=== PATIENT | male | born 1945 | race Caucasian/White ===

== ENCOUNTER 2023-05-20 06:49 | Outpatient (RCR) | payer OTHER, SELFPAY | END 2023-05-22 23:59 | disposition home or self-care (01) | LOC: RPT 06:49 | PROVIDERS: ATTENDING PHYSICIAN Orthopaedic Surgery Sports Medicine; FAMILY PHYSICIAN Family Medicine | DX: Z47.89 Encounter for other orthopedic aftercare (principal); S76.111D Strain of right quadriceps muscle, fascia and tendon, subsequent encounter; Z73.6 Limitation of activities due to disability | CPT/HCPCS: 97110; 97112; 97530 ==

== ENCOUNTER 2023-06-26 07:57 | Outpatient (RCR) | payer OTHER, SELFPAY | END 2023-06-26 23:59 | disposition home or self-care (01) | LOC: RPT 07:57 | PROVIDERS: ATTENDING PHYSICIAN Orthopaedic Surgery Sports Medicine; FAMILY PHYSICIAN Family Medicine | DX: S76.111D Strain of right quadriceps muscle, fascia and tendon, subsequent encounter (principal) | CPT/HCPCS: 97110; 97112; 97530 ==

== ENCOUNTER 2023-08-14 09:00 | Outpatient (RCR) | payer OTHER, SELFPAY | END 2023-08-15 07:36 | disposition home or self-care (01) | LOC: RPT 09:00 | PROVIDERS: ATTENDING PHYSICIAN Orthopaedic Surgery Sports Medicine; FAMILY PHYSICIAN Family Medicine | DX: S76.111D Strain of right quadriceps muscle, fascia and tendon, subsequent encounter (principal); Z48.89 Encounter for other specified surgical aftercare; Z73.6 Limitation of activities due to disability | CPT/HCPCS: 97110; 97530 ==

== ENCOUNTER 2023-11-15 12:19 | Day surgery (SDC) | payer OTHER, SELFPAY ==
[2023-10-18 13:08] LABS: % Basophils 0.6 % (0-2); % Eosinophils 0.8 % (0-6); % Immature Granulocytes 0.2 % (0-0.5); % Lymphocytes 26.4 % (20.5-51.1); % Monocytes 7.7 % (1.7-9.3); % Neutrophils 64.3 % (42.2-75.2); Absolute Eosinophils 0.1 10^3/uL (0-0.7); Absolute Lymphocytes 1.7 10^3/uL (1.2-3.4); Absolute Monocytes 0.5 10^3/uL (0.1-0.6); Absolute Neutrophils 4.1 10^3/uL (1.4-6.5); Hematocrit 38.7 % (39.0-52.0); Hemoglobin 12.8 g/dL (13.0-18.0); Mean Corp Hgb Conc. 33.1 g/dL (33.0-37.0); Mean Corpuscular Hgb 30.4 pg (27.0-31.0); Mean Corpuscular Volume 91.9 fL (80.0-94.0); Mean Platelet Volume 10.9 fL (7.4-10.4); Nucleated Red Blood Cells % 0 % (-); Platelet Count 377 10^3/uL (130-400); Red Blood Cell Count 4.21 10^6/uL (4.70-6.10); Red Cell Dist. Width 14.4 % (11.5-14.5); White Blood Cell Count 6.4 10^3/uL (4.8-10.8)
[2023-10-18 13:21] LABS: ALT (SGPT) 56 U/L (0-50); AST (SGOT) 44 U/L (17-59); Albumin 4.3 g/dl (3.5-5.0); Alkaline Phosphatase 90 U/L (38-126); Blood Urea Nitrogen 32 mg/dl (9-20); Calcium 9.6 mg/dl (8.4-10.2); Carbon Dioxide 25 mmol/L (22-30); Chloride 108 mmol/L (98-107); Estimated Creatinine Clearance 65 ml/min; Glucose 72 mg/dl (70-99); Potassium 5.4 mmol/L (3.5-5.1); Sodium 138 mmol/L (135-145); Total Bilirubin 0.4 mg/dl (0.2-1.3); eGFR > 60.00
[2023-10-18 13:25] VITALS: BMI 24.2
[2023-11-15] VITALS (11 sets, daily range): BP systolic 115–154; BP diastolic 66–82; BMI 24.4
[2023-11-15 17:33] LABS: ACT-LR - POC 340 Seconds (116-155)
[2023-11-15 17:51] LABS: ACT-LR - POC 298 Seconds (116-155)
--- NOTE | 2023-11-15 18:18 | ITS.CL.ABL ---
Utility Agent - Ablation
Ablation
Procedure Report:
AFIB ablation:
Mr. Pitts is a very pleasant 78 yr old gentleman with medical history significant for symptomatic paroxysmal atrial fibrillation on Amiodarone, who is here in the EP lab for atrial fibrillation ablation
Date of Procedure:
11/15/2023
Indications:
Symptomatic atrial fibrillation
Pre-Operative Diagnosis:
Paroxysmal Atrial fibrillation
Post-Operative Diagnosis:
Paroxysmal Atrial fibrillation
Procedure Performed:
Atrial fibrillation ablation with wide area circumferential ablation (WACA) approach for pulmonary vein isolation
Performing Physician:
Mike Fatima MD
Assistants:
EP staff
Anesthesia:
See anesthesia records
Detailed Description of the Procedure:
Written informed consent was obtained from the patient after a full explanation of the risks and benefits of the procedure including the risks of sedation and anesthesia.
The patient was brought to the electrophysiology laboratory in stable condition in fasting state. Continuous electrocardiographic and hemodynamic monitoring was initiated.
The initial rhythm was normal sinus rhythm.
The procedure site was meticulously prepared with surgical scrub and allowed to dry with no pooling. Sterile draping was applied to cover the procedure site. The image intensifier was draped with sterile bag and positioned over the patient. After
infusion of local anesthetic, vascular access was obtained under ultrasound guidance and sheaths were placed over guide wire as detailed below.
Sheath and Catheter Placement:
In the right femoral vein, an 8-Mozambican sheath was placed for use during the ablation procedure. A second 9-Fr sheath was placed for use during intracardiac echo procedure.
The sheaths were upgraded as needed during the case. Intracardiac catheters were positioned using direct fluoroscopic guidance.� ICE catheter was placed in RA. The following catheters / sheaths were placed
Sheaths:
��������������� Agilis sheath in right femoral vein upgraded from 8Fr in right femoral vein
��������������� 9Fr in right femoral vein
Catheters:
������������� [employer] Thermacool STSF bidirectional (D/F) - at locations of HRA, RV, LA and LV.
������������� Pentaray catheter � at locations of RA and LA
������������� ICE catheter - at locations of RA, SVC, and RV.
Intracardiac ECHO:
An 8-Mozambican AcuNav intracardiac ECHO (ICE) probe was advanced through the 9-Mozambican sheath in the femoral vein into the right atrium under fluoroscopic and ICE ultrasound image guidance and a baseline ECHO study was performed. The left atrial size
was normal. There was trace tricuspid regurgitation. The aortic valve was grossly normal. There was normal left ventricular size and function. There was no pericardial effusion. The KRISTAL has normal velocities noted on Doppler. All the four veins were
identified and good flow noted.
During the procedure, ICE was used for monitoring of complications, guidance of trans-septal puncture, monitor the catheter position and tracking ablation lesions. No change in the pericardial space noted throughout the procedure.
Trans-septal Puncture:
Heparin was initiated and infused to maintain appropriate ACT.
A J-tipped guidewire was advanced through the 8-Mozambican sheath in the right femoral vein into the superior vena cava under fluoroscopic and ICE guidance. The 8-Mozambican sheath was exchanged for an Agilis sheath which was advanced into the superior vena
cava. A BRK needle was advanced until the tip was slightly behind the tip of the dilator inside the Agilis. The apparatus was withdrawn until it was in contact with the fossa ovalis. The position was adjusted based on fluoroscopy and ultrasound
images from ICE. Under fluoroscopic, hemodynamic and ICE ultrasound guidance, left atrium was cannulated by advancing the needle. Once atrial septum was cannulated, the needle was pulled back and a BMW guide wire was advanced through the needle into
the left atrium. The guide wire was advanced into the left superior pulmonary vein. Both the sheath and the dilator was advanced into the left atrium. The dilator with the needle was withdrawn. Blood was aspirated from the Agilis sheath and arterial
blood confirmed. The sheath was flushed. Saline injection noted into the left atrium on ICE. The pressure waveform was checked ad LA pressure measured. The penta-ray catheter was advanced in the Agilis sheath into the left pulmonary vein.
The 3-D mapping was done and then the penta-ray was switched to ablation catheter and back to penta-ray as needed.
3D Electroanatomic Mapping:
Using the Pentaray catheter advanced through Agilis sheath into the left atrium, an electroanatomic map (EAM) of the left atrium was created using [employer] Carto mapping system. The map was used for localization of catheter position and
tacking of ablation lesions. The EAM of the left atrium showed 4 pulmonary veins with all four electrically connected to the body the LA. It showed scattered scar on the posterior wall of the LA. The LA was mildly dilated in size.
Following the EAM, preparations were made for ablation.
Phrenic nerve stimulation attempt:
The right sided pulmonary veins were identified and the anterior antrum and the deep anterior locations of the PVs were check with high output stimulation that showed no phrenic nerve capture in any of the potential ablation areas. The whole of the
anterior wall was mapped and the deep veins were also tested and once no sign of phrenic capture noted, a design line was created through the areas of tested antral myocardium for ablation lesions.
Ablation:
Pulmonary vein Isolation:
Radiofrequency ablation was performed using an open irrigation, force-sensing 3.5mm radiofrequency ablation catheter (ThermocoViOptix STSF) by completing the circumferential lesions around the left and right pulmonary veins achieving pulmonary vein
isolation.
All the ablation lesions were guided by the [employer] SURPOINT module with the posterior lesions were limited to 45 martel for SURPOINT lesion index goal of 400 and anterior wall lesions were limited to SURPOINT index goal of 450.
The esophagus was noted to be on the left side of the LA near the PV antra based on the locations of the esophageal temperature probe. Ablation was stopped for any temperature increase of 0.1 degree C. Max esophageal temperature was 37.4C� (baseline
36.1)
EP study / Confirmation of the PVI and bidirectional block:
Following achievement of entrance block at the pulmonary veins, pacing from the pentaray catheter in each of the four veins at 10 milliamps for 2 milliseconds showed entrance and exit block. All PVI were rechecked at the end of the case and remained
isolated with dissociated and local capture with pacing. Entrance and exit block were demonstrated in all veins.
The LA was mapped with Carto EAM in sinus rhythm confirming the line of block at the ablation lesions lines.
Sinus Node Function: The sinus node functions are within acceptable normal range.
The AV nile functions are deemed within normal range.
The mitral annulus was mapped and no sign of accessory pathway was noted.
Arrhythmia Induction:
No sustained arrhythmia was induced at the end of the study.�
Procedure End
ICE study was done again that showed no epicardial accumulation. No complications noted.
Following the completion of the EP study, catheters were removed. Protamine 50 mg was given at the end of the procedure and ACT was checked repeatedly. The sheaths were removed and hemostasis achieved with �figure of 8 suture� and manual compression
after acceptable ACT is achieved.
Left atrial Pressure:
Pre-Procedure: Mean LA pressure was 8mmHg
Post-Procedure: Mean LA pressure was 9mmHg
Post-Procedure: Mean RA pressure was 6mmHg
Estimated Blood loss:
<10 cc
Specimens Removed:
None.
Implants / Devices:
None
Urine output:
None
Packs / Drains/ Tubes:
None
Instrument / Sponge Count Correct:
Yes
Complications of the Procedure:
None
Condition of Patient at Time of Transfer:
Hemodynamically stable with no neurological or vascular compromise.
Summary:
Successful atrial fibrillation ablation with circumferential bidirectional line of block at pulmonary vein antra (Pulmonary vein isolation)
--- NOTE | 2023-11-15 20:00 | PTCARENOTE ---
Assumed pt care from CCL/PACU s/p PVI. VS obtained. Pt AAO x 4, repots intermittent chronic neck pain - alleviated with rolled towel & PRN tylenol. 99% on RA, posterior BS clear/equal, denies SOB or sore throat. NSR on monitor, heart tones normal,
no edema, distal pulses palpable, denies CP. Pt instructed to maintain bedrest until Figure 8 suture removed. Tolerating jello and sips of clears. Urinal at bedside. VSS. See MAR.
[2023-11-15] MEDS: TYLENOL 650 MG PO (21:20)
--- NOTE | 2023-11-15 23:00 | PTCARENOTE ---
Figure 8 suture removed without issue. 4 x 4 & Tegaderm placed on R groin. Distal pulse remains palpable. Diet advanced. Voided x 1 without issue.
[2023-11-15] MEDS: ELIQUIS 5 MG PO (23:16)
[2023-11-16 04:35] VITALS: BP 125/77
[2023-11-16 04:55] LABS: Hematocrit 38.2 % (39.0-52.0); Hemoglobin 13.2 g/dL (13.0-18.0); Mean Corp Hgb Conc. 34.6 g/dL (33.0-37.0); Mean Corpuscular Hgb 30.6 pg (27.0-31.0); Mean Corpuscular Volume 88.6 fL (80.0-94.0); Mean Platelet Volume 10.2 fL (7.4-10.4); Platelet Count 324 10^3/uL (130-400); Red Blood Cell Count 4.31 10^6/uL (4.70-6.10); Red Cell Dist. Width 13.9 % (11.5-14.5); White Blood Cell Count 6.5 10^3/uL (4.8-10.8)
[2023-11-16 05:29] LABS: Blood Urea Nitrogen 28 mg/dl (9-20); Calcium 9.2 mg/dl (8.4-10.2); Carbon Dioxide 22 mmol/L (22-30); Chloride 108 mmol/L (98-107); Estimated Creatinine Clearance 64 ml/min; Glucose 157 mg/dl (70-99); Magnesium 2.2 mg/dl (1.6-2.3); Potassium 4.8 mmol/L (3.5-5.1); Sodium 137 mmol/L (135-145); eGFR > 60.00
[2023-11-16 08:30] VITALS: BP 149/74
[2023-11-16 08:33] VITALS: BP 149/74
[2023-11-16] MEDS: PACERONE 200 MG PO (08:35)
[2023-11-16] MEDS: ELIQUIS 5 MG PO (08:35)
[2023-11-16] MEDS: LIPITOR 20 MG PO (08:35)
[2023-11-16] MEDS: ZESTRIL 20 MG PO (08:35)
[2023-11-16] MEDS: PROTONIX 40 MG PO (08:35)
[2023-11-16] MEDS: TOPROL XL 25 MG PO (08:36)
[2023-11-16] MEDS: TYLENOL 650 MG PO (08:46)
--- NOTE | 2023-11-16 10:01 | W.PN.UPDATE ---
Update Note
Progress Note Update
-Patient is stable status-post atrial fibrillation ablation yesterday.
-No events overnight; telemetry stable.
-No cardiac complaints this a.m.
-Stable for discharge to home.
-Outpatient follow-up with Cardiology as scheduled.
--- NOTE | 2023-11-16 10:50 | PTCARENOTE ---
Assumed care of patient at 0645. Assessment completed and documented in shift assessment. S/p ablation, R Groin Puncture Site CDI.
Written for discharge.
== END 2023-11-16 11:33 | disposition home or self-care (01) ==
LOC: CATH 12:19
PROVIDERS: Nurse Practitioner Adult Health; ATTENDING PHYSICIAN Internal Medicine Cardiovascular Disease; FAMILY PHYSICIAN Family Medicine
DX: I48.19 Other persistent atrial fibrillation (principal); I10 Essential (primary) hypertension; E78.5 Hyperlipidemia, unspecified; M19.90 Unspecified osteoarthritis, unspecified site; N40.0 Benign prostatic hyperplasia without lower urinary tract symptoms; Z79.01 Long term (current) use of anticoagulants
CPT/HCPCS: C1766; C1732; C1892; C1769; C1759; 36415; 76937; 80048; 80053; 83735; 85025; 85027; 85347; 86850; 86900; 86901; 93005; 93656

== ENCOUNTER → 2024-02-11 13:56 | Outpatient (REF) | payer OTHER, SELFPAY | LOC: HWRAD 13:56 | PROVIDERS: ATTENDING PHYSICIAN Specialist; FAMILY PHYSICIAN Family Medicine | DX: M25.512 Pain in left shoulder (principal) | CPT/HCPCS: 73200 ==

== ENCOUNTER → 2024-03-26 14:33 | Outpatient (REF) | payer OTHER, SELFPAY | LOC: HWRAD 14:33 | PROVIDERS: ATTENDING PHYSICIAN Family Medicine | DX: R93.89 Abnormal findings on diagnostic imaging of other specified body structures (principal) | CPT/HCPCS: 71250 ==

== ENCOUNTER → 2024-06-01 13:33 | Outpatient (REF) | payer OTHER, SELFPAY | LOC: RCS 13:33 | PROVIDERS: ATTENDING PHYSICIAN Internal Medicine; FAMILY PHYSICIAN Family Medicine | DX: I10 Essential (primary) hypertension (principal); I48.0 Paroxysmal atrial fibrillation; R00.0 Tachycardia, unspecified | CPT/HCPCS: 93005 ==

== ENCOUNTER 2024-06-23 22:03 | Emergency (ER) | payer OTHER, SELFPAY ==
[2024-06-23 22:29] LABS: % Basophils 0.4 % (0-2); % Immature Granulocytes 0.3 % (0-0.5); % Monocytes 7.8 % (1.7-9.3); % Neutrophils 63.5 % (42.2-75.2); Absolute Eosinophils 0.3 10^3/uL (0-0.7); Absolute Lymphocytes 2.5 10^3/uL (1.2-3.4); Absolute Monocytes 0.8 10^3/uL (0.1-0.6); Absolute Neutrophils 6.3 10^3/uL (1.4-6.5); Hematocrit 33.2 % (39.0-52.0); Hemoglobin 10.8 g/dL (13.0-18.0); Mean Corp Hgb Conc. 32.5 g/dL (33.0-37.0); Mean Corpuscular Hgb 26.3 pg (27.0-31.0); Nucleated Red Blood Cells % 0 % (-); Platelet Count 584 10^3/uL (130-400); Red Cell Dist. Width 16.2 % (11.5-14.5); White Blood Cell Count 9.9 10^3/uL (4.8-10.8)
[2024-06-23 22:43] LABS: ALT (SGPT) 65 U/L (0-50); AST (SGOT) 49 U/L (17-59); Albumin 3.8 g/dl (3.5-5.0); Alkaline Phosphatase 125 U/L (38-126); Blood Urea Nitrogen 48 mg/dl (9-20); Calcium 9.2 mg/dl (8.4-10.2); Carbon Dioxide 24 mmol/L (22-30); Chloride 101 mmol/L (98-107); Glucose 111 mg/dl (70-99); Sodium 134 mmol/L (135-145); Total Bilirubin 0.3 mg/dl (0.2-1.3); Total Protein 6.9 g/dl (6.3-8.2); eGFR > 60.00
[2024-06-23 22:53] LABS: Troponin I 0.014 ng/ml
[2024-06-24 01:00] VITALS: BP 146/93
--- NOTE | 2024-06-24 01:15 | ED.GENMED ---
History of Present Illness
General
Chief Complaint: Cardiac Symptoms
Source: patient and family
Exam Limitations: none
Time Seen by Provider: 06/24/24 00:27
Nursing documentation reviewed up to this point in time: agreed with
History of Present Illness
History of Present Illness:
Pleasant 79-year-old male presents to the emergency dizziness and lightheadedness. Patient was seen by his truck jumper, Dr. Meza today and placed on a Holter monitor. He does have a history of atrial fibrillation and has had ablation in the
past. Patient states that his symptoms began after the visit. Patient does have a history of GI bleed and has had anemia in the past. He is on anticoagulation. Patient denies chest pain and shortness of breath. Patient is due for an
echocardiogram and a nuclear stress test patient in the future.
Past History
Past History
ED Past Medical History: None
ED Past Surgical History: None
Phy Exam
General Physical Exam
General Presentation: well appearing and no apparent distress
General Skin: warm and dry
General Habitus: normal
General Mental: alert
General Hydration: appears well hydrated
ENT Exam
ENT Exam: EOMI, pharynx normal, neck supple and normocephalic
Eye Exam
Eye Exam: PERRL, cornea clear and conjunctiva normal
Cardiovascular Exam
Cardiovascular Exam: regular rate/rhythm, no edema, no murmur and normal peripheral pulses
Pulmonary Exam
Pulmonary Exam: lungs clear, no respiratory distress, no rales, no crackles, no rhonchi, no stridor, no wheezing and no cough
Gastrointestinal Exam
Gastrointestinal Exam: normal bowel sounds, non tender, soft, no organomegaly, no pulsatile mass and non distended
Neurological Exam
Neurological Exam: alert, oriented x3, no motor deficits and speech normal
Musculoskeletal Exam
Musculoskeletal Exam: full ROM and no edema
Skin Exam
Skin Exam: normal color, warm/dry, no rash and no petechia
Psychiatric Exam
Psychiatric Exam: normal mood/affect
Course
Orders/Labs/Results
Orders:
Orders
06/23/24 22:06
ECG [Electrocardiogram (*1)] Urgent
Reason for Study: Atrial Fibrillation
EKG- Treatment ONCE
06/23/24 22:19
Complete Blood Count/With Diff Urgent
Comprehensive Metabolic Panel Urgent
Troponin I Urgent
06/24/24 02:30
Urinalysis Reflex To Culture Urgent
Date Specimen was Collected: 06/24/24
Time Specimen was Collected: 02:35
Abnormal Lab Results
06/23/24
22:19
RBC 4.10 L 10^6/uL
(4.70-6.10)
Hgb 10.8 L g/dL
(13.0-18.0)
Hct 33.2 L %
(39.0-52.0)
MCH 26.3 L pg
(27.0-31.0)
MCHC 32.5 L g/dL
(33.0-37.0)
RDW 16.2 H %
(11.5-14.5)
Plt Count 584 H 10^3/uL
(130-400)
Absolute Monos (auto) 0.8 H 10^3/uL
(0.1-0.6)
Sodium 134 L mmol/L
(135-145)
BUN 48 H mg/dl
(9-20)
Glucose 111 H mg/dl
(70-99)
ALT 65 H U/L
(0-50)
06/23/24 22:19
06/23/24 22:19
Vital Signs
Initial and Last Documented VS:
Initial Vital Signs
Pulse Resp Pulse Ox
77 17 100
06/24/24 00:31 06/24/24 00:31 06/24/24 00:31
Last Documented Vital Signs
Pulse Resp BP Pulse Ox
82 15 119/73 100
06/24/24 02:30 06/24/24 02:30 06/24/24 02:00 06/24/24 02:15
*Critical Care Note
Total Time (30-74mins, 75-104mins- exclusive of procedures): Not Applicable
Update Note
Update Note:
Rectal exam performed in the presence of staff. Stool is brown. Hemoccult negative. Good rectal tone
ED Attending Note
-
Portions of this chart may have been created with voice recognition software.� Occasional wrong word or��sound alike� substitutions may have occurred due to the inherent limitations of voice recognition software.
Discharge Plan
Departure
Patient Disposition: Home (Routine Discharge)
Date of Disposition: 06/24/24
Time of Disposition: 02:40
Patient with high blood pressure during this ER visit?: No
Condition: Good
Discharge Problem:
Acute dehydration, Heart palpitations
Instructions: Palpitations ED, BLOOD PRESSURE
Prescriptions:
No Action
atorvastatin 20 mg tablet
20 mg PO DAILY
finasteride 1 mg Tablet
1 mg PO DAILY
Eliquis 5 mg tablet
5 mg PO BID Qty: 60 0RF
metoprolol succinate [Toprol XL] 25 mg tablet extended release 24 hr
25 mg PO DAILY Qty: 30 0RF
multivitamin Tablet
1 tab PO DAILY
vitamin B complex Tablet
1 tab PO DAILY
latanoprost 0.005 % Drops
1 drp BOTH EYES DAILY
valsartan
80 mg PO DAILY
Rx Instructions:
unsure of mg
Referrals:
Billy Meza MD [Active] -
Moreno Hall MD [Family Provider] -
Activity Restrictions/Additional Instructions:
It was a pleasure meeting you and taking part in your care. We hope for your continued healing and wellness.
Please read discharge instructions in their entirety. However, they are for general education and may not describe your exact diagnosis at discharge. Information on your ER visit and medical conditions were discussed with you along with appropriate
follow up information...
If indicated, please take your medications as instructed and indicated on discharge paperwork.
Please schedule a follow up appointment as directed. Call to schedule an appointment
Please return to the emergency department with ANY change in, persisting, or worsening of symptoms. If any of your symptoms do not improve, or persist, or become more severe within 6-12 hours, please return to the emergency department for further
care.
Please return to the emergency department if you develop a headache, neck pain/stiffness, fever greater than 100.4F, chest pain, shortness of breath, persistent nausea, vomiting, slurred speech, difficulty walking, numbness/tingling, weakness, signs
of infection or any other symptoms that are worrisome to you.
If you have any questions or concerns please do not hesitate to call the Hospital at or E-mail me directly at [email or web address]
Interventions
Interventions:
*Risk Screen - Suicide Last Done: 06/23/24 22:12
*General Assessment Last Done: 06/23/24 22:12
*Neglect/Abuse Screening Last Done: 06/23/24 22:12
ED- Fall Risk Assessment Last Done: 06/24/24 00:45
*ED COVID-19 Vaccine History Last Done: 06/23/24 22:12
ED- Pulmonary Assessment Last Done: 06/24/24 00:45
ED- Cardiac Assessment Last Done: 06/24/24 00:45
Discharge Date and Time
Print Language: HEBREW
[2024-06-24 02:00] VITALS: BP 119/73
[2024-06-24 02:58] LABS: Urine Albumin Negative (Neg - Trace); Urine Bilirubin Negative (Negative); Urine Character Clear (Clear); Urine Color Yellow; Urine Glucose Negative (Negative); Urine Ketone Negative (Negative); Urine Leukocyte Negative (Negative); Urine Nitrite Negative (Negative); Urine Occult Blood Negative (Negative); Urine Urobilinogen Negative (Neg - 1+)
== END 2024-06-24 02:45 | disposition home or self-care (01) ==
LOC: EMR 22:03
PROVIDERS: Student in an Organized Health Care Education/Training Program; EMERGENCY PHYSICIAN Student in an Organized Health Care Education/Training Program; FAMILY PHYSICIAN Family Medicine
DX: R42 Dizziness and giddiness (principal); R00.2 Palpitations; I48.91 Unspecified atrial fibrillation; E86.0 Dehydration; Z79.01 Long term (current) use of anticoagulants
CPT/HCPCS: 99283; 80053; 81003; 84484; 85025; 93005

== ENCOUNTER → 2024-07-03 07:12 | Outpatient (REF) | payer OTHER, SELFPAY | LOC: HWRCS 07:12 | PROVIDERS: ATTENDING PHYSICIAN Internal Medicine; FAMILY PHYSICIAN Family Medicine | DX: I48.0 Paroxysmal atrial fibrillation (principal); R06.02 Shortness of breath | CPT/HCPCS: 93306 ==

== ENCOUNTER → 2024-07-07 08:08 | Outpatient (REF) | payer OTHER, SELFPAY | LOC: HWRCS 08:08 | PROVIDERS: ATTENDING PHYSICIAN Internal Medicine; FAMILY PHYSICIAN Family Medicine | DX: I48.0 Paroxysmal atrial fibrillation (principal); R06.02 Shortness of breath | CPT/HCPCS: 78452; 93017; A9500; J2785 ==

== ENCOUNTER → 2024-07-21 13:17 | Outpatient (REF) | payer OTHER, SELFPAY | LOC: HWRAD 13:17 | PROVIDERS: ATTENDING PHYSICIAN Internal Medicine Critical Care Medicine; FAMILY PHYSICIAN Family Medicine | DX: R91.8 Other nonspecific abnormal finding of lung field (principal) | CPT/HCPCS: 71250 ==

== ENCOUNTER → 2024-11-16 06:34 | Outpatient (REF) | payer OTHER, SELFPAY | LOC: MRI 06:34 | PROVIDERS: ATTENDING PHYSICIAN Orthopaedic Surgery Sports Medicine; FAMILY PHYSICIAN Family Medicine | DX: S76.111D Strain of right quadriceps muscle, fascia and tendon, subsequent encounter (principal) | CPT/HCPCS: 73721 ==

== ENCOUNTER 2024-12-07 17:00 | Outpatient (RCR) | payer OTHER, SELFPAY | END 2024-12-07 23:59 | disposition home or self-care (01) | LOC: RPT 17:00 | PROVIDERS: ATTENDING PHYSICIAN Orthopaedic Surgery Sports Medicine; FAMILY PHYSICIAN Family Medicine | DX: S76.111D Strain of right quadriceps muscle, fascia and tendon, subsequent encounter (principal); Z73.6 Limitation of activities due to disability; X58.XXXD Exposure to other specified factors, subsequent encounter | CPT/HCPCS: 97110; 97112; 97162; 97530 ==

== ENCOUNTER → 2024-12-09 11:17 | Outpatient (REF) | payer OTHER, SELFPAY | LOC: HWRAD 11:17 | PROVIDERS: ATTENDING PHYSICIAN Orthopaedic Surgery; FAMILY PHYSICIAN Family Medicine | DX: M75.122 Complete rotator cuff tear or rupture of left shoulder, not specified as traumatic (principal) | CPT/HCPCS: 73200 ==

== ENCOUNTER → 2025-01-01 07:38 | Outpatient (REF) | payer OTHER, SELFPAY | LOC: HWRAD 07:38 | PROVIDERS: ATTENDING PHYSICIAN Nurse Practitioner Family; FAMILY PHYSICIAN Family Medicine | DX: E04.1 Nontoxic single thyroid nodule (principal) | CPT/HCPCS: 76536 ==

== ENCOUNTER 2025-01-06 08:59 | Outpatient (RCR) | payer OTHER, SELFPAY | END 2025-01-06 23:59 | disposition home or self-care (01) | LOC: RPT 08:59 | PROVIDERS: ATTENDING PHYSICIAN Orthopaedic Surgery Sports Medicine; FAMILY PHYSICIAN Family Medicine | DX: S76.111D Strain of right quadriceps muscle, fascia and tendon, subsequent encounter (principal); Z73.6 Limitation of activities due to disability; R26.89 Other abnormalities of gait and mobility | CPT/HCPCS: 97110; 97112; 97530 ==

== ENCOUNTER → 2025-02-17 07:19 | Outpatient (REF) | payer OTHER, SELFPAY ==
[2025-02-17 07:46] VITALS: BP 128/81; BP_SYST 85
== END ==
LOC: RADI 07:19
PROVIDERS: ATTENDING PHYSICIAN Nurse Practitioner Family; FAMILY PHYSICIAN Family Medicine
DX: E04.1 Nontoxic single thyroid nodule (principal)
CPT/HCPCS: 10005; 88173

== ENCOUNTER 2025-04-08 07:00 | Outpatient (RCR) | payer OTHER, SELFPAY | END 2025-04-08 23:59 | disposition home or self-care (01) | LOC: RPT 07:00 | PROVIDERS: ATTENDING PHYSICIAN Orthopaedic Surgery; FAMILY PHYSICIAN Family Medicine | DX: Z47.1 Aftercare following joint replacement surgery (principal); Z73.6 Limitation of activities due to disability; M62.81 Muscle weakness (generalized); R20.0 Anesthesia of skin; M25.512 Pain in left shoulder; Z96.612 Presence of left artificial shoulder joint | CPT/HCPCS: 97110; 97140; 97162 ==

== ENCOUNTER 2025-05-04 06:52 | Outpatient (RCR) | payer OTHER, SELFPAY | END 2025-05-04 23:59 | disposition home or self-care (01) | LOC: RPT 06:52 | PROVIDERS: ATTENDING PHYSICIAN Orthopaedic Surgery; FAMILY PHYSICIAN Family Medicine | DX: Z47.1 Aftercare following joint replacement surgery (principal); Z73.6 Limitation of activities due to disability; M62.81 Muscle weakness (generalized); R20.0 Anesthesia of skin; M25.512 Pain in left shoulder; Z96.612 Presence of left artificial shoulder joint | CPT/HCPCS: 97010; 97110; 97140 ==

== ENCOUNTER 2025-06-09 06:36 | Outpatient (RCR) | payer OTHER, SELFPAY | END 2025-06-09 23:59 | disposition home or self-care (01) | LOC: RPT 06:36 | PROVIDERS: ATTENDING PHYSICIAN Orthopaedic Surgery; FAMILY PHYSICIAN Family Medicine | DX: Z47.1 Aftercare following joint replacement surgery (principal); Z73.6 Limitation of activities due to disability; M62.81 Muscle weakness (generalized); R20.0 Anesthesia of skin; M25.512 Pain in left shoulder; Z96.612 Presence of left artificial shoulder joint | CPT/HCPCS: 97010; 97110 ==